=== PATIENT | male | born 1955 | race Caucasian/White ===

== ENCOUNTER 2019-08-14 11:41 | Outpatient (REF) | payer MEDICARE, BC, SELFPAY ==
[2019-08-14 19:24] LABS: ALT 38 U/L (16-63); Calculated LDL 97 mg/dL; Cholesterol 166 mg/dL (<200); Glucose 80 mg/dL (74-106); HDL Cholesterol 57 mg/dL (40-60); Triglyceride 62 mg/dL (<150)
[2019-08-14 19:45] LABS: Creatine Kinase 239 U/L (39-308)
[2019-08-18 10:26] LABS: PSA, Diagnostic 10.3 ng/mL (0.0-4.5)
== END 2019-08-14 12:01 ==
LOC: NCHCN 11:41
PROVIDERS: PCP Internal Medicine; Visit Provider Internal Medicine
DX: E78.5 Hyperlipidemia, unspecified (principal); R97.20 Elevated prostate specific antigen [PSA]
CPT/HCPCS: 80061; 82550; 82947; 84153; 84460

== ENCOUNTER 2020-08-18 21:18 | Outpatient (REF) | payer MEDICARE, BC, SELFPAY ==
[2020-08-18 21:06] LABS: ALT 30 U/L (16-63); CREATININE 0.94 mg/dL (0.70-1.30); Calculated LDL 97 mg/dL (<100); Cholesterol 165 mg/dL (<200); Glucose 85 mg/dL (74-106); HDL Cholesterol 56 mg/dL (40-60); Triglyceride 63 mg/dL (<150)
[2020-08-18 21:18] LABS: Creatine Kinase 229 U/L (39-308)
[2020-08-19 20:40] LABS: PSA, Diagnostic 9.4 ng/mL (0.0-4.5)
[2020-08-20 10:09] LABS: Hepatitis C Ab w Rflx HCV PCR Negative (Negative)
== END 2020-08-18 21:38 ==
LOC: NCHCN 21:18
PROVIDERS: PCP Internal Medicine; Visit Provider Internal Medicine
DX: M21.371 Foot drop, right foot (principal); E78.5 Hyperlipidemia, unspecified; N40.0 Benign prostatic hyperplasia without lower urinary tract symptoms; R97.20 Elevated prostate specific antigen [PSA]
CPT/HCPCS: 80061; 82550; 82947; 86803; 82565; 84153; 84460

== ENCOUNTER 2021-09-15 14:43 | Outpatient (REF) | payer MEDICARE, BC, SELFPAY ==
[2021-09-15 19:54] LABS: ALT 39 U/L (16-63); Anion Gap 9.5 mmol/L (3-11); BUN 14 mg/dL (7-18); CO2 26.5 mmol/L (21.0-32.0); CREATININE 0.9 mg/dL (0.70-1.30); Calcium 9.6 mg/dL (8.5-10.1); Calculated LDL 101 mg/dL (<100); Chloride 103 mmol/L (98-107); Cholesterol 179 mg/dL (<200); Glucose 85 mg/dL (74-106); HDL Cholesterol 61 mg/dL (40-60); Potassium 4.1 mmol/L (3.5-5.1); Sodium 139 mmol/L (136-145); Triglyceride 88 mg/dL (<150)
[2021-09-15 20:10] LABS: Creatine Kinase 224 U/L (39-308)
[2021-09-16 18:20] LABS: PSA, Diagnostic 12.1 ng/mL (0.0-4.5)
== END 2021-09-15 14:44 | disposition home or self-care (01) ==
LOC: NCHCN 14:43
PROVIDERS: PCP Internal Medicine; Visit Provider Internal Medicine
DX: E78.5 Hyperlipidemia, unspecified (principal); N40.0 Benign prostatic hyperplasia without lower urinary tract symptoms; E66.3 Overweight
CPT/HCPCS: 80048; 80061; 82550; 84153; 84460

== ENCOUNTER 2022-01-04 10:50 | Outpatient (REF) | payer MEDICARE, BC, SELFPAY ==
[2022-01-05 18:35] LABS: PSA, Diagnostic 12.9 ng/mL (<=4.5)
== END 2022-01-04 10:51 | disposition home or self-care (01) ==
LOC: NCHCN 10:50
PROVIDERS: PCP Internal Medicine; Visit Provider Physician Assistant
DX: N40.0 Benign prostatic hyperplasia without lower urinary tract symptoms (principal); R97.20 Elevated prostate specific antigen [PSA]
CPT/HCPCS: 84153

== ENCOUNTER 2022-09-18 13:45 | Outpatient (REF) | payer MEDICARE, BC, SELFPAY ==
[2022-09-18 19:48] LABS: ALT 39 U/L (16-63); Anion Gap 8.6 mmol/L (3-11); BUN 15 mg/dL (7-18); CO2 28.4 mmol/L (21.0-32.0); Calcium 9.5 mg/dL (8.5-10.1); Calculated LDL 83 mg/dL (<100); Chloride 104 mmol/L (98-107); Cholesterol 160 mg/dL (<200); Estimated GFR 81.47 (mL/min/1.73m2); Glucose 99 mg/dL (74-106); HDL Cholesterol 69 mg/dL (40-60); Potassium 4.5 mmol/L (3.5-5.1); Sodium 141 mmol/L (136-145); Triglyceride 41 mg/dL (<150)
[2022-09-18 20:07] LABS: Creatine Kinase 200 U/L (39-308)
[2022-09-20 10:16] LABS: PSA, Diagnostic 14.4 ng/mL (<=4.5)
== END 2022-09-18 13:46 | disposition home or self-care (01) ==
LOC: NCHCN 13:45
PROVIDERS: PCP Internal Medicine; Visit Provider Nurse Practitioner Family
DX: N40.0 Benign prostatic hyperplasia without lower urinary tract symptoms (principal)
CPT/HCPCS: 80048; 80061; 82550; 84153; 84460

== ENCOUNTER 2023-08-29 16:44 | Outpatient (REF) | payer MEDICARE, BC, SELFPAY | END 2023-08-29 16:45 | disposition home or self-care (01) | LOC: NCHCN 16:44 | PROVIDERS: PCP Internal Medicine; Visit Provider Nurse Practitioner Family | DX: R82.998 Other abnormal findings in urine (principal); N50.819 Testicular pain, unspecified | CPT/HCPCS: 87077; 87086; 87186 ==

== ENCOUNTER 2023-09-19 19:05 | Outpatient (REF) | payer MEDICARE, BC, SELFPAY ==
[2023-09-19 20:09] LABS: Anion Gap 5.5 mmol/L (3-11); BUN 11 mg/dL (7-18); CO2 28.5 mmol/L (21.0-32.0); Calcium 9.7 mg/dL (8.5-10.1); Chloride 103 mmol/L (98-107); Estimated GFR 80.97 (mL/min/1.73m2); Glucose 95 mg/dL (74-106); Potassium 3.9 mmol/L (3.5-5.1); Sodium 137 mmol/L (136-145)
[2023-09-19 20:10] LABS: Bilirubin Negative (Negative); Blood Negative (Negative); Clarity Clear (Clear); Glucose Negative (Negative); Ketones Negative (Negative); Leukocyte Esterase Negative (Negative); Nitrite Negative (Negative); Urobilinogen 0.2 mg/dL (Up to 0.2)
[2023-09-20 18:48] LABS: PSA, Screening 11.7 ng/mL (<=6.5)
== END 2023-09-19 19:06 | disposition home or self-care (01) ==
LOC: NCHCN 19:05
PROVIDERS: PCP Internal Medicine; Visit Provider Internal Medicine
DX: Z12.5 Encounter for screening for malignant neoplasm of prostate (principal); N39.0 Urinary tract infection, site not specified
CPT/HCPCS: 80048; 84153; 81003; 87086

== ENCOUNTER 2024-05-12 18:30 | Outpatient (REF) | payer MEDICARE, BC, SELFPAY | END 2024-05-12 18:31 | disposition home or self-care (01) | LOC: NCHCN 18:30 | PROVIDERS: PCP Internal Medicine; Visit Provider Nurse Practitioner Family | DX: N39.0 Urinary tract infection, site not specified (principal); R39.89 Other symptoms and signs involving the genitourinary system; B96.29 Other Escherichia coli [E. coli] as the cause of diseases classified elsewhere | CPT/HCPCS: 87077; 87086; 87186 ==

== ENCOUNTER 2024-09-24 15:24 | Outpatient (REF) | payer MEDICARE, BC, SELFPAY ==
[2024-09-24 20:26] LABS: ALT 33 U/L (16-63); Anion Gap 5.6 mmol/L (3-11); BUN 16 mg/dL (7-18); CO2 29.4 mmol/L (21.0-32.0); CREATININE 0.9 mg/dL (0.70-1.30); Calcium 9.9 mg/dL (8.5-10.1); Chloride 106 mmol/L (98-107); Creatine Kinase 146 U/L (39-308); Estimated GFR 91.31 (mL/min/1.73m2); Glucose 102 mg/dL (74-106); Potassium 4.5 mmol/L (3.5-5.1); Sodium 141 mmol/L (136-145)
[2024-09-24 20:45] LABS: Calculated LDL 98 mg/dL (<100); Cholesterol 180 mg/dL (<200); HDL Cholesterol 66 mg/dL (40-60); Triglyceride 80 mg/dL (<150)
== END 2024-09-24 15:25 | disposition home or self-care (01) ==
LOC: NCHCN 15:24
PROVIDERS: PCP Internal Medicine; Visit Provider Internal Medicine
DX: E78.5 Hyperlipidemia, unspecified (principal)
CPT/HCPCS: 80048; 80061; 82550; 84460